=== PATIENT | female | born 1980 | race Caucasian/White ===

== ENCOUNTER → 2020-09-17 | Outpatient (CLI) | payer OTHER ==
[~2020-09-17] MED LIST: IBUP-1222 PO; OMNIPAQUE 350 MG/ML, 100ML BOTTLE ONE; OXYC1TAB14 PO; PREN1TAB27 PO
== END | disposition home or self-care (01) ==
LOC: RAD 10:52
PROVIDERS: ATTEND Internal Medicine
DX: C50.111 Malignant neoplasm of central portion of right female breast (principal); J98.4 Other disorders of lung; R91.1 Solitary pulmonary nodule; D18.09 Hemangioma of other sites; N94.89 Other specified conditions associated with female genital organs and menstrual cycle
CPT/HCPCS: 71260; 74177; 78306; A9503; Q9967